=== PATIENT | male | born 1940 | race American Indian/Alaskan Native ===

== ENCOUNTER 2018-02-21 12:22 | Day surgery (SDC) | payer MEDICARE ==
[~2018-02-21 12:22] MED LIST: ANCEF/STERILE WATER 2 GM/20 ML 2 GM/20 ML SYRINGE IV NR; NACL 0.9% 1000 ML 1,000 ML IV SCH
[2018-02-21] MEDS ORDERED: HEPARIN/NS 5000 UNIT/500ML(CATH LAB) 500 ML IR ONE (14:53)
[2018-02-21] MEDS ORDERED: VERSED ONE (14:53)
[2018-02-21] MEDS ORDERED: SUBLIMAZE ONE (14:53)
[2018-02-21] MEDS ORDERED: XYLOCAINE 1%/ EPI 1:100,000 INFILTRATI ONE (14:54)
[2018-02-21] MEDS ORDERED: NACL 0.9% 250ML 0 ML ONE (14:54)
[2018-02-21] MEDS ORDERED: NACL 0.9% 250ML 250 ML ONE (14:55)
[2018-02-21] MEDS: HEPARIN 10,000 UNITS/10 ML ONE ×2 (15:51→15:52)
--- NOTE | 2018-02-21 16:07 | Short Stay Summary ---
Short Stay Documentation Date of service: 02/21/18 - History Principal diagnosis: Malfunctioning hemodialysis access Past Medical History: dialysis, ESRD Past Surgical History: Other (right ij permcath) Social history: lives with family - Allergies and Medications Current Medications: Allergies lisinopril Allergy (Verified 02/21/18 13:08) Itching Home Medications Medication Instructions Recorded Confirmed Last Taken Type Losartan Potassium 25 mg PO DAILY 02/21/18 02/21/18 02/21/18 07:00 History 25mg Metoprolol Succinate 25 mg PO DAILY 02/21/18 02/21/18 02/21/18 07:00 History 25mg Active Medications Cefazolin Sodium (Ancef/Sterile Water 2 Gm/20 Ml) 2 gm in 20 mls @ 80 mls/hr IV PREOP NR; Protocol Stop: 02/21/18 23:59 Sodium Chloride (Nacl 0.9% 1000 Ml) 1,000 mls @ 42 mls/hr IV DIRECT SHARI - Physical exam General appearance: no acute distress Integumentary: no rash, no growths HEENT: EOMI Lungs: Normal air movement Breasts: deferred Heart: Regular rate Gastrointestinal: normal Male Genitourinary: deferred Female Genitourinary: deferred Rectal Exam: deferred Neurological: Normal speech, Normal tone - Brief post op/procedure progress note Date of procedure: 02/21/18 Pre-op diagnosis: malfunctioning hemodialysis access Post-op diagnosis: same Procedure: central venoplasty, hd catheter exchange Anesthesia: local Surgeon: NEREIDA LOVE Estimated blood loss: minimal Pathology: none Condition: stable - Disposition Condition at discharge: Good Disposition: DC-01 TO HOME OR SELFCARE Short Stay Discharge Plan Activity: advance as tolerated Weight Bearing Status: Weight Bear as Tolerated Diet: regular Wound: keep clean and dry, per your surgeon's advice Follow up with: CHRISTAL COX DO [Primary Care Provider] - 7 Days
--- NOTE | 2018-02-21 16:13 | Operative Report ---
Operative Report Operative Report: Exam: Right tunneled hemodialysis catheter exchange under fluoroscopy, central venous angioplasty Clinical indication: Patient with a history of right indwelling tunneled hemodialysis catheter with poor clearances Date: 02/21/2018 Procedure: Following an explanation of the risks, benefits and alternatives; written informed consent was obtained. The patient was brought into the angiographic suite and placed in supine position on the examination table. His indwelling tunneled hemodialysis catheter and right chest wall were prepped and draped in the usual sterile fashion. 1% lidocaine was used for anesthesia. Contrast was injected through the indwelling tunneled hemodialysis catheter which demonstrated appropriate positioning. No significant fibrin sheath was identified. The catheter was dissected free and the catheter withdrawn approximately. Additional contrast was injected through the catheter which demonstrates 70% stenosis within the SVC. The catheter was then removed over 2 guidewires and a 7 [place] sheath placed over one of the guidewires. The SVC stenosis was ballooned using a 12 mm x 60 mm balloon insufflated a nominal atmospheres for 1 minute. Post vena plasty imaging demonstrated reduction of the stenosis to less than 20%. A new Bard 19 cm Glidepath tunneled hemodialysis catheter was then tunneled antegrade over the guidewire under fluoroscopy. The trocar and guidewire were removed. Both ports flushed and aspirated easily and were then locked with appropriate volume to heparin. A catheter exit site was approximated using 3-0 Vicryl suture. The catheter was securely fastened to the chest wall using 2-0 Ethilon suture. Sterile dressings were then applied. The patient tolerated the procedure well. There were no immediate post procedure complications. Conscious sedation was performed under the guidance of radiologic nursing. Continuous cardiopulmonary monitoring was utilized. 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 Central venoplasty with residual less than 20% stenosis as described. 2) fluoroscopic guided exchange of tunneled hemodialysis catheter with placement of a new 19 cm Glidepath tunneled hemodialysis catheter
[2018-02-21 17:09] VITALS: BP 120/59
== END 2018-02-21 17:20 | disposition home or self-care (01) ==
LOC: CATHLABREC 12:22
PROVIDERS: ATTEND Surgery Vascular Surgery
DX: T82.858A Stenosis of other vascular prosthetic devices, implants and grafts, initial encounter (principal); I12.0 Hypertensive chronic kidney disease with stage 5 chronic kidney disease or end stage renal disease; N18.6 End stage renal disease; F03.90 Unspecified dementia, unspecified severity, without behavioral disturbance, psychotic disturbance, mood disturbance, and anxiety; E78.00 Pure hypercholesterolemia, unspecified; M19.90 Unspecified osteoarthritis, unspecified site; Z79.899 Other long term (current) drug therapy; Z88.8 Allergy status to other drugs, medicaments and biological substances; Z95.5 Presence of coronary angioplasty implant and graft; Z86.73 Personal history of transient ischemic attack (TIA), and cerebral infarction without residual deficits; Z98.890 Other specified postprocedural states; Y83.1 Surgical operation with implant of artificial internal device as the cause of abnormal reaction of the patient, or of later complication, without mention of misadventure at the time of the procedure
CPT/HCPCS: 36415; 36581; 37248; 77001; 84132; 99156; 99157; C1725; C1750; C1751; C1769; C1894; J1644; J2250; J3010; J7050